=== PATIENT | female | born 1940 | race Caucasian/White ===

== ENCOUNTER 2021-10-20 12:25 | Emergency (ER) | payer MEDICARE, BC | END 2021-10-20 16:28 | disposition home or self-care (01) | LOC: JD.ED 12:25 | DX: M46.98 Unspecified inflammatory spondylopathy, sacral and sacrococcygeal region (principal); E87.1 Hypo-osmolality and hyponatremia; Z91.040 Latex allergy status; Z88.5 Allergy status to narcotic agent; Z88.8 Allergy status to other drugs, medicaments and biological substances; Z79.899 Other long term (current) drug therapy | CPT/HCPCS: 36415; 73502-26-RT; 73502-RT; 80053; 85025; 85379; 93970; 93970-26; 99284-25 ==

== ENCOUNTER 2021-11-17 13:14 | Inpatient (IN) | payer MEDICARE, BC ==
[2021-11-17] MEDS ORDERED: Acetaminophen 325 MG Tab PO ONE (14:14)
[2021-11-17] MEDS ORDERED: Sodium Chloride 0.9% 10 ML Syringe FLUSH PRN (14:14)
[2021-11-17] MEDS ORDERED: Ketorolac 30 MG/ML SDV IVPUSH ONE (14:15)
[2021-11-17] MEDS ORDERED: Orphenadrine 100 MG Tab.ER PO ONE (14:15)
[2021-11-17] MEDS ORDERED: Ondansetron 4 MG Tab.DIS PO PRN (16:20)
[2021-11-17] MEDS ORDERED: Ketorolac 15 MG/ML SDV IVPUSH PRN (16:20)
[2021-11-17 17:35] LABS: CORONAVIRUS COVID-19 NAA NEGATIVE (NEGATIVE)
[2021-11-17] MEDS: Acetaminophen 325 MG Tab PO PRN (18:45)
[2021-11-17] MEDS: Sodium Chloride 0.9% 1,000 ML IV SCH (19:22)
[2021-11-17] MEDS ORDERED: Temazepam 7.5 MG Cap PO PRN (21:00)
[2021-11-17] MEDS: Docusate Sodium 100 MG Cap PO PRN (21:23)
[2021-11-18] MEDS ORDERED: Diclofenac Sodium 1% Gel 100 GM Tube TOP PRN (06:34)
[2021-11-18] MEDS ORDERED: Polyethylene Glycol 3350 Powder 17 GM Packet PO PRN (06:34)
[2021-11-18] MEDS: Spironolactone 25 MG Tab PO SCH (08:04)
[2021-11-18] MEDS: Magnesium Oxide 400 MG Tab PO SCH ×2 (08:04→20:26)
[2021-11-18] MEDS: Oxybutynin 5 MG Tab.ER PO SCH (08:05)
[2021-11-18] MEDS: Sodium Chloride 0.9% 1,000 ML IV SCH (08:13)
[2021-11-18] MEDS ORDERED: Enoxaparin 30 MG/0.3 ML Syringe SUBCUT SCH (09:00)
[2021-11-18] MEDS ORDERED: Losartan 50 MG Tab PO SCH (09:00)
[2021-11-18] MEDS: Acetaminophen 325 MG Tab PO PRN ×2 (16:14→20:25)
[2021-11-18] MEDS: Docusate Sodium 100 MG Cap PO PRN (20:26)
[2021-11-18] MEDS ORDERED: Temazepam 15 MG Cap PO PRN (21:00)
[2021-11-18] MEDS ORDERED: Cholecalciferol (Vitamin D3) 25 MCG Tab PO SCH (21:00)
[2021-11-18] MEDS ORDERED: Aluminum Hydroxide/Magnesium Hydroxide/Simethicone Susp 30 ML Cup PO ONE (23:03)
[2021-11-19] MEDS ORDERED: Enoxaparin 40 MG/0.4 ML Syringe SUBCUT SCH (09:00)
[2021-11-19] MEDS ORDERED: Losartan 100 MG Tab PO SCH (09:00)
[2021-11-19] MEDS: Oxybutynin 5 MG Tab.ER PO SCH (09:04)
[2021-11-19] MEDS: Spironolactone 25 MG Tab PO SCH (09:04)
[2021-11-19] MEDS: Magnesium Oxide 400 MG Tab PO SCH (09:04)
== END 2021-11-19 15:45 | DRG 563 ==
LOC: EDBD 13:14 → JD.ED 13:14 → JD.MS 16:12
PROVIDERS: ADMIT Internal Medicine; ATTEND Internal Medicine
DX: S82.002A Unspecified fracture of left patella, initial encounter for closed fracture (principal); E87.1 Hypo-osmolality and hyponatremia; Z78.9 Other specified health status; Z74.09 Other reduced mobility; Z96.642 Presence of left artificial hip joint; G14 Postpolio syndrome; W19.XXXA Unspecified fall, initial encounter; Z96.652 Presence of left artificial knee joint; G72.89 Other specified myopathies; D64.9 Anemia, unspecified; Z79.899 Other long term (current) drug therapy; Z88.5 Allergy status to narcotic agent; Z88.8 Allergy status to other drugs, medicaments and biological substances; Z91.09 Other allergy status, other than to drugs and biological substances; H54.7 Unspecified visual loss; M19.90 Unspecified osteoarthritis, unspecified site; F41.9 Anxiety disorder, unspecified; F32.A Depression, unspecified; Z86.19 Personal history of other infectious and parasitic diseases; Z20.822 Contact with and (suspected) exposure to COVID-19
CPT/HCPCS: 0240U; 36415; 80053; 85025; 86140; 87641; 96376; 97162; 97530; 29505; 96374; 99284-25; 99285; A9270-GY; J1650; J1885; J3370; J7030; J7050; U0002